=== PATIENT | male | born 1980 | race Caucasian/White ===

== ENCOUNTER 2016-09-05 22:18 | Emergency (ER) | payer OTHER ==
[~2016-09-05] VITALS: Ht 175.3 cm; Wt 100.6 kg
[2016-09-05 22:26] VITALS: TEMP 36.7; Ht 175.3 cm; Wt 100.6 kg
[2016-09-05] MEDS ORDERED: IBUPROFEN 600 MG TAB PO STA (22:33)
[2016-09-05] MEDS ORDERED: OXYCODONE/ACETAMINOPHEN 5-325 TAB PO STA (22:33)
[2016-09-05] MEDS ORDERED: CEFTRIAXONE SOD 350MG/ML 1 GM VIAL IM STA (22:33)
[2016-09-05] MEDS ORDERED: DOXYCYCLINE HYCLATE 100 MG CAP PO STA (22:33)
--- NOTE | 2016-09-05 22:37 | EMERGENCY ROOM VISIT NOTE ---
History Report prepared by Piero: Britni Gallegos Under the Supervision of: Dr. Leonardo Wylie M.D. First contact with patient: 22:29 Chief Complaint: TESTICULAR PAIN Stated Complaint: SWOLLEN R TESTICLE,SEVERE PAIN, GONG INTO ABD History of Present Illness The patient is a 36 year old male who presents to the Emergency Room with complaints of constant testicular pain beginning yesterday. The patient states that he was seen by his PCP yesterday and was told that he had a cyst and to take antiinflammatories. He reports that today his pain has worsened and he is having increasing swelling. He notes that the pain radiates into his abdomen. Source of History: patient Onset: yesterday Position: other (right testicle) Quality: other (swelling) Timing: constant Associated Symptoms: + abdominal pain Note: Pt complains of swelling. Review of Systems See HPI for pertinent positives & negatives. A total of 10 systems reviewed and were otherwise negative. Past Medical & Surgical Medical Problems: (1) No Known Active Medical Problems Family History No pertinent family history stated. Social History Smoking Status: Current Every Day Smoker Marital Status: in relationship Housing Status: lives with significant other Current/Historical Medications Scheduled Doxycycline (Monohydrate) (Monodox), 1 CAP PO BID Scheduled PRN Oxycodone/Acetaminophen 5MG/325MG (Percocet 5MG/325MG), 1-2 TABLETS PO Q6 PRN for Pain Allergies Coded Allergies: Iodinated Diagnostic Agents (Unverified Allergy, Severe, ANAPHYLAXIS, 09/05) Uncoded Allergies: CT DYE (Allergy, Severe, ANAPHYLAXIS, 09/05/16) Physical Exam Vital Signs Date Time Temp Pulse Resp B/P (MAP) Pulse Ox O2 Delivery O2 Flow Rate FiO2 09/06/16 02:21 63 18 155/110 99 09/06/16 01:06 65 18 143/97 97 Room Air 09/05/16 22:26 36.7 92 18 165/103 97 Room Air Physical Exam GENERAL: Patient is a healthy-appearing well-nourished [] HEAD: Normocephalic atraumatic EYES: Ocular movements intact pupils equal and react to light OROPHARYNX mucous membranes are moist no exudates present no erythema or edema present NECK: Supple no nuchal rigidity CHEST: Good equal expansion LUNGS: Clear and equal to auscultation CARDIAC: Normal S1 and S2 ABDOMEN: Soft nontender no guarding BACK: No CVA tenderness EXTREMITIES: No pain upon palpation normal muscle strength in all groups no clubbing cyanosis or edema NEURO: Patient is following commands and answering questions appropriately. Alert and oriented x3 Cranial Nerves 2-12 grossly intact : Right testicle slightly swollen, extremely tender to palpation. Medical Decision & Procedures ER Provider Diagnostic Interpretation: (TESTICULAR) SCROTUM-CONT HISTORY: Pain Pt c/o Rt testicular pain COMPARISON: None. FINDINGS: Right testis: 3.9 cm maximum dimension. Normal vascular flow. 1.2 cm right epididymal cyst. Left testis: 3.6 cm maximum dimension. Normal vascular flow IMPRESSION: Normal testicular ultrasound. 1.2 cm right epididymal cyst. The above report was generated using voice recognition software. It may contain grammatical, syntax or spelling errors. Electronically signed by: Sy Thornton M.D. 09/06/2016 6:04 AM Dictated Date/Time: 09/06/2016 6:03 AM ABD/PELVIS WITHOUT FOR STONE CT DOSE: 1428.63 mGy.cm HISTORY: Flank pain Pt c/o Rt sided flank pain TECHNIQUE: Multiaxial CT images of the abdomen and pelvis were performed without the use of intravenous and oral contrast according to the standard department stone protocol. COMPARISON STUDY: None. FINDINGS: Lung bases are clear. Nonobstructing calcification lower pole left kidney. No obstructing urinary tract calculus. Slight bladder wall thickening. Liver spleen and pancreas appear unremarkable. Nonobstructive bowel pattern. Normal appendix. IMPRESSION: 1. Nonobstructing lower pole left renal calcification. 2. Mild bladder wall thickening. 3. Nonobstructive bowel pattern. The above report was generated using voice recognition software. It may contain grammatical, syntax or spelling errors. Electronically signed by: Sy Thornton M.D. 09/06/2016 6:00 AM Dictated Date/Time: 09/06/2016 5:58 AM KUB CLINICAL HISTORY: Pt c/o Rt sided testicular pain pain COMPARISON STUDY: No previous studies for comparison. FINDINGS: 3 mm calcification lower pole left kidney. No additional calcifications are appreciated. Nonobstructive bowel pattern. IMPRESSION: 3 mm calcification lower pole left kidney. Otherwise negative study The above report was generated using voice recognition software. It may contain grammatical, syntax or spelling errors. Electronically signed by: Sy Thornton M.D. 09/06/2016 5:45 AM Dictated Date/Time: 09/06/2016 5:44 AM Laboratory Results Test 09/05/16 22:57 Urine Color YELLOW Urine Appearance CLEAR (CLEAR) Urine pH 6.5 (4.5-7.5) Urine Specific [place] 1.015 (1.000-1.030) Urine Protein NEG (NEG) Urine Glucose (UA) NEG (NEG) Urine Ketones NEG (NEG) Urine Occult Blood 2+ (NEG) Urine Nitrite NEG (NEG) Urine Bilirubin NEG (NEG) Urine Urobilinogen NEG (NEG) Urine Leukocyte Esterase NEG (NEG) Urine WBC (Auto) 1-5 /hpf (0-5) Urine RBC (Auto) 10-30 /hpf (0-4) Urine Hyaline Casts (Auto) 0 /lpf (0-5) Urine Epithelial Cells (Auto) 0-5 /lpf (0-5) Urine Bacteria (Auto) NEG (NEG) Labs reviewed by ED physician. Medications Administered Medications (Trade) Dose Ordered Sig/Steph Route Start Time Stop Time Status Last Admin Dose Admin Azithromycin (Zithromax Tab) 1,000 mg NOW ONCE PO 09/05/16 22:45 09/05/16 22:46 DC 09/05/16 22:48 1,000 MG Oxycodone/ Acetaminophen (Percocet 5/ 325MG Home Pack) 1 homepack UD ONCE PO 09/05/16 22:45 09/05/16 22:46 DC 09/06/16 02:11 1 HOMEPACK Oxycodone/ Acetaminophen (Percocet 5-325mg Tab) 2 tab NOW STAT PO 09/05/16 22:33 09/05/16 22:36 DC 09/05/16 22:48 2 TAB Ceftriaxone Sodium (Rocephin Im) 250 mg NOW STAT IM 09/05/16 22:33 09/05/16 22:36 DC 09/05/16 22:50 250 MG Doxycycline Hyclate (Vibramycin Cap) 100 mg ONE STAT PO 09/05/16 22:33 09/05/16 22:36 DC 09/05/16 22:46 100 MG Ibuprofen (Motrin Tab) 600 mg NOW STAT PO 09/05/16 22:33 09/05/16 22:36 DC 09/05/16 22:47 600 MG ED Course 2229: Past medical records reviewed. The patient was evaluated in room A12B. A complete history and physical examination was performed. 2232: Motrin Tab 600mg PO, Vibramycin Cap 100mg PO, Rocephin IM 250mg IM, Oxycodone/Acetaminophen 2 tab PO. 2244: Oxycodone/Acetaminophen 1 homepack PO, Azithromycin 1000mg PO. Medical Decision Medication Reconciliation: I attest that I have personally reviewed the patient' s current medication list Blood Pressure Screening: Patient was found to have an elevated blood pressure and was referred to their primary care doctor for recheck and further treatment This is a 36-year-old male who presents emergency department complaining of right testicular pain. The patient was recent seen and [facility] for the same issues. Based on the patient's complaints he was given IM Rocephin as well as oral azithromycin. I will place him on doxycycline for 10 days. I do not feel he has a torsion on examination and ultrasound confirmed that he does not have a torsion. He does have some blood in his urine. For this reason he was sent for CAT scan the abdomen and pelvis to rule out a kidney stone. There is no evidence of kidney stone on CAT scan. He was given Percocet for the pain along with ibuprofen. I recommended that the patient follow-up with urology for this cyst in his right testes. Patient and family were in agreement with the treatment plan. Impression Primary Impression: Pain in right testicle Additional Impression: Testicular cyst Scribe Attestation The scribe's documentation has been prepared under my direction and personally reviewed by me in its entirety. I confirm that the note above accurately reflects all work, treatment, procedures, and medical decision making performed by me. Departure Information Dispostion Home / Self-Care Prescriptions Doxycycline (Monohydrate) (MONODOX) 100 Mg Cap 1 CAP PO BID for 10 Days, #20 CAP Prov: Leonardo Wylie MD 09/06/16 Oxycodone/Acetaminophen 5MG/325MG (PERCOCET 5MG/325MG) Tab 1-2 TABLETS PO Q6 Y for Pain, #14 TAB PAIN Prov: Leonardo Wylie MD 09/06/16 Patient Instructions [facility] Health Problem Qualifiers
[2016-09-05] MEDS ORDERED: AZITHROMYCIN 250 MG TAB PO ONE (22:45)
[2016-09-05] MEDS ORDERED: PERCOCET HOME PACK PO ONE (22:45)
[2016-09-05 23:32] LABS: MANUAL MICROSCOPIC REQUIRED? NO; REVIEW REQ? NO; URINE APPEARANCE CLEAR (CLEAR); URINE BILIRUBIN NEG (NEG); URINE COLOR YELLOW; URINE EPITHELIAL CELL AUTO 0-5 /lpf (0-5); URINE NITRITE NEG (NEG); URINE PH 6.5 (4.5-7.5); URINE SPECIFIC GRAVITY 1.015 (1.000-1.030); UROBILINOGEN NEG (NEG); ZZUR CULT IF INDIC CLEAN CATCH NO
[2016-09-06] MEDS ORDERED: PERCOCET HOME PACK PO ONE (01:59)
[2016-09-06] MEDS ORDERED: OXYC-57 PO (02:01)
[2016-09-06] MEDS ORDERED: DOXY100C41 PO (02:02)
[2016-09-06 02:21] VITALS: BP 155/110; PULSE 63; O2SAT 99
--- NOTE | 2016-09-06 05:46 | DIAGNOSTIC IMAGING REPORT ---
KUB CLINICAL HISTORY: Pt c/o Rt sided testicular pain pain COMPARISON STUDY: No previous studies for comparison. FINDINGS: 3 mm calcification lower pole left kidney. No additional calcifications are appreciated. Nonobstructive bowel pattern. IMPRESSION: 3 mm calcification lower pole left kidney. Otherwise negative study The above report was generated using voice recognition software. It may contain grammatical, syntax or spelling errors. Electronically signed by: Sy Thornton M.D. 09/06/2016 5:45 AM Dictated Date/Time: 09/06/2016 5:44 AM
--- NOTE | 2016-09-06 06:02 | DIAGNOSTIC IMAGING REPORT ---
ABD/PELVIS WITHOUT FOR STONE CT DOSE: 1428.63 mGy.cm HISTORY: Flank pain Pt c/o Rt sided flank pain TECHNIQUE: Multiaxial CT images of the abdomen and pelvis were performed without the use of intravenous and oral contrast according to the standard department stone protocol. COMPARISON STUDY: None. FINDINGS: Lung bases are clear. Nonobstructing calcification lower pole left kidney. No obstructing urinary tract calculus. Slight bladder wall thickening. Liver spleen and pancreas appear unremarkable. Nonobstructive bowel pattern. Normal appendix. IMPRESSION: 1. Nonobstructing lower pole left renal calcification. 2. Mild bladder wall thickening. 3. Nonobstructive bowel pattern. The above report was generated using voice recognition software. It may contain grammatical, syntax or spelling errors. Electronically signed by: Sy Thornton M.D. 09/06/2016 6:00 AM Dictated Date/Time: 09/06/2016 5:58 AM
--- NOTE | 2016-09-06 06:06 | DIAGNOSTIC IMAGING REPORT ---
(TESTICULAR) SCROTUM-CONT HISTORY: Pain Pt c/o Rt testicular pain COMPARISON: None. FINDINGS: Right testis: 3.9 cm maximum dimension. Normal vascular flow. 1.2 cm right epididymal cyst. Left testis: 3.6 cm maximum dimension. Normal vascular flow IMPRESSION: Normal testicular ultrasound. 1.2 cm right epididymal cyst. The above report was generated using voice recognition software. It may contain grammatical, syntax or spelling errors. Electronically signed by: Sy Thornton M.D. 09/06/2016 6:04 AM Dictated Date/Time: 09/06/2016 6:03 AM
== END 2016-09-06 02:22 | disposition home or self-care (01) ==
LOC: C.EDB 22:20 → C.EDA 09-06 02:22
DX: N50.811 Right testicular pain (principal); N44.2 Benign cyst of testis; F17.210 Nicotine dependence, cigarettes, uncomplicated